=== PATIENT | female | born 1970 | race Caucasian/White ===

== ENCOUNTER 2021-06-20 13:41 | Emergency (ER) | payer OTHER ==
[2021-06-20 14:04] VITALS: RESP 16
[2021-06-20] MEDS ORDERED: ACETAMINOPHEN TAB 500 MG TAB PO STA (14:08)
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
--- NOTE | 2021-06-20 14:43 | XR ---
Fifth digit left hand HISTORY: Trauma 2 weeks prior, pain 3 views the fifth digit left hand There is a posterior fracture dislocation of the proximal interphalangeal joint of the fifth digit of the left hand, dorsal bayonet apposition is present, suspect fracture fragment is present over aspec t of the joint at the level of the distal aspect of the proximal phalanx fifth digit. IMPRESSION: Fracture dislocation with digit.
[2021-06-20 16:24] VITALS: BP 133/83; PULSE 74; TEMP 97.9
[2021-06-20] MEDS ORDERED: IBUPROFEN 600 MG TAB PO STA (16:42)
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
[2021-06-20] MEDS ORDERED: LORazepam 2 MG/ML INJ IM STA (17:30)
[2021-06-20] MEDS ORDERED: ONDANSETRON ODT 4 MG TAB PO STA (17:30)
== END 2021-06-20 17:47 | disposition other institution (70) ==
LOC: EC 13:41
DX: S42.401A Unspecified fracture of lower end of right humerus, initial encounter for closed fracture (principal); S63.257A Unspecified dislocation of left little finger, initial encounter; J44.9 Chronic obstructive pulmonary disease, unspecified; F17.200 Nicotine dependence, unspecified, uncomplicated; Z88.0 Allergy status to penicillin; Y04.8XXA Assault by other bodily force, initial encounter; Y92.89 Other specified places as the place of occurrence of the external cause
CPT/HCPCS: 73060; 73080; 73140; 99284; 96372; J2060